=== PATIENT | female | born 1950 | race Caucasian/White ===

== ENCOUNTER → 2018-05-22 | Outpatient (CLI) | payer MEDICARE | END | disposition home or self-care (01) | LOC: PCVCCLINIC 13:54 | DX: R07.89 Other chest pain (principal); R06.02 Shortness of breath; E78.5 Hyperlipidemia, unspecified | CPT/HCPCS: 80061; 93005; G0463 ==

== ENCOUNTER → 2018-06-24 | Outpatient (CLI) | payer MEDICARE ==
--- NOTE | 2018-06-24 09:48 | PCVCIMAG ---
APPROVED REPORT Study performed: 06/24/2018 08:39:11 Exam: Stress Echocardiogram Indication: chest pressure, Dyspnea, HLP Patient Location: Echo lab Stress Nurse: Mary Alice Walsh RN Status: routine Ht: 5 ft 6 in HR: 63 bpm BP: 106/60 mmHg Rhythm: NSR Procedure The patient underwent an Exercise Stress Test using the Angel Protocol. Blood pressure, heart rate, and EKG were monitored. An Echocardiogram was performed by metal wire technician in four stages in quad fashion. At peak stress, four selected images were obtained and placed side by side with resting images for comparison. Stress Test Details Stress Test: Exercise stress testing was performed using a Angle protocol. HR Resting HR: 63 bpmMax Heart Rate (APMHR): 155 bpm Max HR Achieved: 134 bpmTarget HR (85% APMHR): 131 bpm % of APMHR: 86 Recovery HR: 72 bpm HR response to stress: Normal HR response to stress BP Resting BP: 106/60 mmHg Max BP: 124/60 mmHg Recovery BP: 104/70 mmHg ECG Resting ECG: Sinus Rhythm w/ incomplete RBBB Stress ECG: Sinus Rhythm ST Change: non specific ST abnormality at rest Maximum ST Deviation: 0 mm Arrhythmia: occasional PACs Recovery ECG: Sinus Rhythm Recovery ST Change: Normal Recovery ST Deviation: 0 mm Recovery Arrhythmia: occasional PACs Clinical Reason for Termination: Maximal effort, Dyspnea Stress Symptoms: Dyspnea Exercise duration: 9 min sec Highest Stage Achieved: Stage 3: 3.4 mph at 14% grade. Exercise capacity: 10.1 METs Overall Exercise Capacity for Age: Normal Scale: Active Angina Score: None Stress ECG Conclusion Clinical: Non-ischemic ECG: Non-ischemic Tilley Treadmill Score is 9.0 which is Low risk. Pre-Stress Echo The resting Echocardiogram showed normal left ventricular contractility with an estimated Ejection Fraction of about >55%. Normal wall motion in all segments on baseline images. Post-Stress Echo The stress Echocardiogram showed normal left ventricular contractility with an estimated Ejection Fraction of about 65%. Normal augmentation of wall motion in all segments on post stress images. Clinical No clinical or ECG evidence for ischemia. Conclusion Clinical Response: Non-ischemic Exercise Capacity: Average Stress ECG Response: Non-ischemic Stress Echo Images: Non-ischemic The left ventricle is normal in size and wall thickness in both the rest and stress images. Normal stress echocardiogram with maximal exercise stress. Other Information Study Quality: Adequate <Conclusion> The left ventricle is normal in size and wall thickness in both the rest and stress images. Normal stress echocardiogram with maximal exercise stress.
== END | disposition home or self-care (01) ==
LOC: PCVCIMAG 08:43
PROVIDERS: ATTEND Internal Medicine
DX: R06.09 Other forms of dyspnea (principal); R07.89 Other chest pain
CPT/HCPCS: 93325; 93351